=== PATIENT | female | born 1960 | race Caucasian/White ===

== ENCOUNTER 2023-08-02 07:29 | Outpatient (AMB) | payer OTHER, SELFPAY ==
[2023-08-02 07:37] VITALS: BP 136/74; PULSE 91; O2SAT 99; BMI 26.8
--- NOTE | 2023-08-02 07:37 | A.OFFPC_ITS ---
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 Pt's sister in January and patient is grieving. PFSH Family History Sister Mental health disorder Brother Mental health disorder Social History Housing: House Patient Tobacco Use Status: Never used Tobacco e-Cigarette/Vaping Use: Never Used service: No Current occupational status: unemployed Cognitive needs: No Hearing needs: No Vision needs: Yes Questionnaire PHQ-9 Over the last 2 weeks, how often have you been bothered by any of the following problems? 1. Little interest or pleasure in doing things: more than half the days 2. Feeling down, depressed, or hopeless: several days 3. Trouble falling or staying asleep, or sleeping too much: nearly every day 4. Feeling tired or having little energy: several days 5. Poor appetite or overeating: not at all 6. Feeling bad about yourself - or that you are a failure or have let yourself or your family down: not at all 7. Trouble concentrating on things, such as reading the newspaper or watching television: not at all 8. Moving or speaking so slowly that other people could have noticed. Or the opposite - being so fidgety or restless that you have been moving around a lot more than usual: not at all 9. Thoughts that you would be better off or of hurting yourself in some way: not at all Total score: 7 Depression Screening Interpretation: Negative Depression Screening Done: Yes Source: Developed by Drs. Jomar Haro, Maryanne Sosa, Steven Pelayo and colleagues, with an educational ramila from [employer]. Thrive Questionnaire Date Thrive assessed: 08/02/23 I am a: Patient What is your living situation today?: I have a steady place to live Within the past 12 months, did the food you bought not last and you didn't have the money to get more?: Never true Within the past 12 months, did you worry whether your food would run out before you got money to buy more?: Never true Do you have trouble paying for medicines?: No Do you have trouble getting transportation to medical appointments?: No Do you have trouble paying your heating and electricity bill?: No Do you have trouble taking care of your child, family member or friend?: No Do you have trouble with day-to-day activities such as bathing, preparing meals, shopping, managing finances, etc.?: No Are you currently unemployed and looking for a job?: No Are you interested in more education?: No THRIVE Score: 0 AUDIT C Alcohol Use Questionnaire (AUDIT-C) 1. How often do you have a drink containing alcohol?: Monthly or less 2. How many drinks containing alcohol do you have on a typical day when you are drinking?: 1 or 2 3. How often do you have six or more drinks on one occasion?: Never Total Score: 1 EASTON-7 AMB Questionnaire EASTON-7 Date EASTON - 7 assessed: 08/02/23 Feeling nervous, anxious, or on edge: 2 = More than half the days Not being able to stop or control worryin = Several days Worrying too much about different things: 2 = More than half the days Trouble relaxin = Nearly every day Being so restless that it is hard to sit still: 3 = Nearly every day Becoming easily annoyed or irritable: 2 = More than half the days Feeling afraid as if something awful might happen: 0 = Not at all Total EASTON-7 score (0-4 normal; 5-9 mild; 10-14 moderate; 15-21 severe): 13 Source: Developed by Drs. Jomar Haro, Maryanne Sosa, Steven Pelayo and colleagues, with an educational ramila from [employer]. Review of Systems Const All systems reviewed & are unremarkable except as noted in HPI and below Reports no additional complaints Eyes Reports no additional complaints ENT Reports no additional complaints Card Reports no additional complaints Resp Reports no additional complaints GI Reports no additional complaints Reports no additional complaints Physical exam (Primary Care) Vital Signs: Last Vital Signs Pulse 91 08/02/23 07:37 BP 136/74 08/02/23 07:37 Pulse Ox 99 08/02/23 07:37 Oxygen Delivery Method Room Air 08/02/23 07:37 BMI result Body Mass Index 26.8 Tobacco/Smoking Status: Tobacco use Status Tobacco use date assessed 08/02/23 08/02/23 07:41 Patient Tobacco Use Status Never used Tobacco 08/02/23 07:41 e-Cigarette/Vaping Use Never Used 08/02/23 07:41 PHQ-9: PHQ-9 Score PHQ-9: Total score 7 08/02/23 08:09 Depression Screening Interpretation: Negative Thrive Assessment: Date of Thrive Assessment Date Thrive assessed 08/02/23 08/02/23 07:45 Const General: no acute distress HENMT Head: Yes normal to inspection Ears: hearing grossly normal bilaterally Face and sinus: Yes normal facial exam Throat: Yes posterior oropharynx normal Eyes General: appearance normal, both eyes and all related structures Neck Neck: Yes no lymphadenopathy and Yes supple Resp Effort & Inspection: normal respiratory effort Auscultation: clear to auscultation bilaterally Cardio Rhythm: regular rhythm Heart sounds: S1 normal heart sound present and S2 normal heart sound present GI Inspection: Yes normal to inspection Palpation (GI): Soft to palpation Percussion: Yes normal to percussion Auscultation: normal bowel sounds Assessment and Plan Assessment & Plan (1) Annual physical exam: Code(s): Z00.00 - Encounter for general adult medical examination without abnormal findings Plan: Well-balanced diet regular physical activity discussed with the patient (2) Hyperlipidemia: Code(s): E78.5 - Hyperlipidemia, unspecified Plan: Continue Crestor check lipid profile (3) HTN (hypertension): Code(s): I10 - Essential (primary) hypertension Plan: Continue losartan (4) Hx of colonoscopy with polypectomy: Comment: Dr. Onofre, patient will have a repeat colonoscopy in 2023 Code(s): Z98.890 - Other specified postprocedural states; Z86.010 - Personal history of colonic polyps Orders: Orders Comprehensive [place]. Panel Fast Today E55.9 - Vitamin D deficiency, unspecified, M47.812 - Spondylosis without myelopathy or radiculopathy, cervical region, M48.061 - Spinal stenosis, lumbar region without neurogenic claudication, M85.80 - Other specified disorders of bone density and structure, unspecified site, N28.1 - Cyst of kidney, acquired, Z92.89 - Personal history of other medical treatment Vitamin B12 and Folate Today E55.9 - Vitamin D deficiency, unspecified, M47.812 - Spondylosis without myelopathy or radiculopathy, cervical region, M48.061 - Spinal stenosis, lumbar region without neurogenic claudication, M85.80 - Other specified disorders of bone density and structure, unspecified site, N28.1 - Cyst of kidney, acquired, Z92.89 - Personal history of other medical treatment Vitamin D 25-OH Total Today E55.9 - Vitamin D deficiency, unspecified, M47.812 - Spondylosis without myelopathy or radiculopathy, cervical region, M48.061 - Spinal stenosis, lumbar region without neurogenic claudication, M85.80 - Other specified disorders of bone density and structure, unspecified site, N28.1 - Cyst of kidney, acquired, Z92.89 - Personal history of other medical treatment UA w Microscopic Today E55.9 - Vitamin D deficiency, unspecified, M47.812 - Spondylosis without myelopathy or radiculopathy, cervical region, M48.061 - Spinal stenosis, lumbar region without neurogenic claudication, M85.80 - Other specified disorders of bone density and structure, unspecified site, N28.1 - Cyst of kidney, acquired, Z92.89 - Personal history of other medical treatment Complete Blood Count Auto Diff Today E55.9 - Vitamin D deficiency, unspecified, M47.812 - Spondylosis without myelopathy or radiculopathy, cervical region, M48.061 - Spinal stenosis, lumbar region without neurogenic claudication, M85.80 - Other specified disorders of bone density and structure, unspecified site, N28.1 - Cyst of kidney, acquired, Z92.89 - Personal history of other medical treatment Lipid Panel Today E55.9 - Vitamin D deficiency, unspecified, M47.812 - Spondylosis without myelopathy or radiculopathy, cervical region, M48.061 - Spinal stenosis, lumbar region without neurogenic claudication, M85.80 - Other specified disorders of bone density and structure, unspecified site, N28.1 - Cyst of kidney, acquired, Z92.89 - Personal history of other medical treatment TSH reflex Free T4 Today E55.9 - Vitamin D deficiency, unspecified, M47.812 - Spondylosis without myelopathy or radiculopathy, cervical region, M48.061 - Spin al stenosis, lumbar region without neurogenic claudication, M85.80 - Other specified disorders of bone density and structure, unspecified site, N28.1 - Cyst of kidney, acquired, Z92.89 - Personal history of other medical treatment Coding Level of Care Code New Pt Prev Care 40-64y(07448) Diagnoses Annual physical exam Z00.00 Hyperlipidemia E78.5 HTN (hypertension) I10 Hx of colonoscopy with polypectomy Z98.890; Z86.010
== END 2023-08-02 08:24 | disposition home or self-care (01) ==
PROVIDERS: PCP Internal Medicine; Visit Provider Internal Medicine
DX: Z00.00 Encounter for general adult medical examination without abnormal findings (principal); E78.5 Hyperlipidemia, unspecified; I10 Essential (primary) hypertension; Z98.890 Other specified postprocedural states; Z86.010 Personal history of colon polyps
CPT/HCPCS: 99386

== ENCOUNTER 2023-08-02 08:27 | Outpatient (REF) | payer OTHER, SELFPAY ==
[2023-08-02 10:24] LABS: MANUAL DIFF FLAG NO
[2023-08-02 10:29] LABS: Basophils Percent Auto 1.1 % (0-2); Eosinophils Absolute Auto 0.1 X10*3/uL (0.0-0.4); Eosinophils Percent Auto 1.7 % (0-4); Hematocrit 39.8 % (37.0-47.0); Hemoglobin 13.4 g/dl (12.0-16.0); Imm Gran Abs Auto 0.01 X10*3/uL (0.00-0.03); Imm Gran Pct Auto 0.3 % (0.0-0.4); Lymphocytes Absolute Auto 1.2 X10*3/uL (1.2-4.9); Mean Corpuscular HGB Conc 33.7 g/dl (31.0-35.0); Mean Corpuscular Hemoglobin 29.5 pg (27.0-33.0); Mean Corpuscular Volume 87.5 fL (80.0-98.0); Mean Platelet Volume 12.1 fL (9.4-12.3); Monocytes Absolute Auto 0.2 X10*3/uL (0.1-1.2); Monocytes Percent Auto 6.4 % (2-11); Neutrophils Absolute Auto 2.1 x10*3/uL (2.0-8.3); Neutrophils Percent Auto 58.5 % (45-73); Platelet Count 223 X10*3/uL (160-400); Red Blood Count 4.55 X10*6/uL (4.20-5.50); Red Cell Distribution Width 12.5 % (11.0-16.0); White Blood Count 3.6 X10*3/uL (4.8-10.8)
[2023-08-02 10:51] LABS: Appearance Urine Clear; Color Urine Yellow; Glucose Urine UA Negative (Negative); Leukocyte Esterase Urine Negative (Negative); Nitrite Urine Negative (Negative); UMIC TRIGGER UA YES; Urine Blood Negative (Negative); Urine Ketones Negative (Negative); Urine Protein 30 (1+) mg/dL (Neg-Trace)
[2023-08-02 10:53] LABS: Alanine Aminotransferase 19 U/L (0-31); Albumin Level 4.7 g/dL (3.5-5.0); Alkaline Phosphatase 65 U/L (39-117); Anion Gap 15 (12-20); Aspartate Amino Transferase 21 U/L (5-31); Bilirubin Total 0.4 mg/dL (0.0-1.0); Blood Urea Nitrogen 12 mg/dL (9-16); Carbon Dioxide 26 mmol/L (22-29); Chloride 106 mmol/L (96-108); Cholesterol 220 mg/dL (<200); Estimated Glomerular Filt Rate > 60; Glucose Fasting 101 mg/dL (60-99); HDL Cholesterol 87 mg/dL (>40); LDL Cholesterol Calculated 109 mg/dL (<100); Potassium 3.9 mmol/L (3.3-5.1); Sodium 143 mmol/L (135-145); Total Protein 7.7 g/dL (6.5-8.0); Triglycerides 124 mg/dL (<150)
[2023-08-02 10:54] LABS: Bacteria Urine None Seen (None Seen); RBC Urine 0-2 /HPF (0-2); Squamous Epithelial Cell Urine 0-2 /HPF (0-2); WBC Urine 0-5 /HPF (0-5)
[2023-08-02 11:20] LABS: Folate 13.7 ng/mL (> or = 4.0); Vitamin B12 649 pg/mL (200-900)
[2023-08-02 11:21] LABS: TSH reflex Free T4 1.59 uIU/mL (0.32-4.0); Vitamin D 25-OH Total 67.8 ng/mL (>30)
== END 2023-08-02 08:28 | disposition home or self-care (01) ==
LOC: HO.HMGCLDS 08:27
PROVIDERS: PCP Internal Medicine; Visit Provider Internal Medicine
DX: M47.812 Spondylosis without myelopathy or radiculopathy, cervical region (principal); M48.061 Spinal stenosis, lumbar region without neurogenic claudication; N28.1 Cyst of kidney, acquired; M85.80 Other specified disorders of bone density and structure, unspecified site; E55.9 Vitamin D deficiency, unspecified; Z92.89 Personal history of other medical treatment
CPT/HCPCS: 36415; 80053; 80061; 81001; 82306; 82607; 82746; 84443; 85025

== ENCOUNTER 2023-10-20 09:21 | Outpatient (AMB) | payer OTHER, SELFPAY ==
[2023-10-20 09:23] VITALS: PULSE 81; O2SAT 98; BMI 26.9
--- NOTE | 2023-10-20 09:23 | A.OFFPC_ITS ---
Vital Signs 10/20/23 09:23 Height 5 ft 4 in Weight 157 lb BMI 26.9 Pulse 81 Pulse Source Pulse Oximeter Pulse Oximetry (%) 98 Oxygen Delivery Method Room Air Intake Visit Reasons: EP 3M F/U Intake Note: Pt is here today for 3 months follow up visit. Allergies No Known Allergies Allergy (Verified 10/20/23 09:25) Medication List - Last Reconciled 10/20/23 by Therese Ortiz MD cyclobenzaprine 10 mg PO TID PRN losartan 100 mg PO DAILY multivitamin 1 tab PO DAILY rosuvastatin 5 mg PO DAILY Tobacco use date assessed: 10/20/23 Dental Screening Dental Screen Date: 08/02/23 HPI EP 3M F/U HPI Details Pt presents for f/u of HTN and hyperlipid, stable on meds. Pt c/o chronic specialist lauro neck pain and stiffness. Pt had PT before with good refief. PFS Medical History (Updated 10/20/23 @ 09:59 by Therese Ortiz MD) Ectopic Surgical History (Updated 10/20/23 @ 09:28 by Diana Ogden [facility]) Hx of tonsillectomy Family History Sister Mental health disorder Brother Mental health disorder Social History Housing: House Patient Tobacco Use Status: Never used Tobacco e-Cigarette/Vaping Use: Never Used service: No Current occupational status: unemployed Cognitive needs: No Hearing needs: No Vision needs: Yes Questionnaire Thrive Questionnaire Date Thrive assessed: 08/02/23 EASTON-7 AMB Questionnaire EASTON-7 Date EASTON - 7 assessed: 08/02/23 Source: Developed by Drs. Jomar Haro, Maryanne Sosa, Steven Pelayo and colleagues, with an educational ramila from [employer]. Review of Systems Const All systems reviewed & are unremarkable except as noted in HPI and below Reports no additional complaints Eyes Reports no additional complaints ENT Reports no additional complaints Card Reports no additional complaints Resp Reports no additional complaints GI Reports no additional complaints Reports no additional complaints Physical exam (Primary Care) Vital Signs: Last Vital Signs Pulse 81 10/20/23 09:23 Pulse Ox 98 10/20/23 09:23 Oxygen Delivery Method Room Air 10/20/23 09:23 BMI result Body Mass Index 26.9 Tobacco/Smoking Status: Tobacco use Status Tobacco use date assessed 10/20/23 10/20/23 09:27 Patient Tobacco Use Status Never used Tobacco 10/20/23 09:23 e-Cigarette/Vaping Use Never Used 10/20/23 09:23 Thrive Assessment: Date of Thrive Assessment Date Thrive assessed 08/02/23 10/20/23 09:23 Const General: no acute distress HENMT Head: Yes normal to inspection Throat: Yes posterior oropharynx normal Neck Neck: Yes supple Resp Effort & Inspection: normal respiratory effort Auscultation: clear to auscultation bilaterally Cardio Rhythm: regular rhythm Heart sounds: S1 normal heart sound present and S2 normal heart sound present GI Inspection: Yes normal to inspection Palpation (GI): Soft to palpation Percussion: Yes normal to percussion Auscultation: normal bowel sounds Back/Spine/Pelvis Other: Decreased range of motion and paraspinal tenderness and muscle spasm in the lower cervical region Assessment and Plan Assessment & Plan (1) Neck pain: Code(s): M54.2 - Cervicalgia Plan: Referred to physical therapy (2) HTN (hypertension): Code(s): I10 - Essential (primary) hypertension Plan: Change losartan to valsartan 160 mg follow-up in 2 months check comprehensive panel before (3) Hyperlipidemia: Code(s): E78.5 - Hyperlipidemia, unspecified Plan: Continue rosuvastatin Orders: Orders PT Evaluation and Treatment Today M54.2 - Cervicalgia Comprehensive [place]. Panel Fast 2 Months E78.5 - Hyperlipidemia, unspecified, I10 - Essential (primary) hypertension Medications: New valsartan 160 mg PO DAILY 90 tabs 0RF rosuvastatin 5 mg PO DAILY 90 tabs 3RF Coding Level of Care Code Est Pt Level 4 (27595) Diagnoses Neck pain M54.2 HTN (hypertension) I10 Hyperlipidemia E78.5
== END 2023-10-20 10:15 | disposition home or self-care (01) ==
PROVIDERS: PCP Internal Medicine; Visit Provider Internal Medicine
DX: M54.2 Cervicalgia (principal); I10 Essential (primary) hypertension; E78.5 Hyperlipidemia, unspecified
CPT/HCPCS: 99214

== ENCOUNTER 2023-11-30 09:00 | Outpatient (RCR) | payer OTHER, SELFPAY ==
--- NOTE | 2023-11-10 14:06 | MHC.PT.EP ---
[facility] [place] Office [place] Office [place] Office [address] Christopher Levy [address] [phone] F: [phone] F: [phone] F: [phone] F: [phone] Physical Therapy Plan of Care Date of Evaluation: 11/10/23 Date of Surgery: Diagnosis: This is a 63 yo female presenting to skilled PT with a script for cervicalgia. Assessment: This is a 63 yo female presenting to skilled PT with a script for cervicalgia. Patient reporting that she has had neck pain for a long time now. She had therapy for this in the past and it was helpful. Pain is located centralized at neck (hears a painful crack, achy), UT on the L (pulling), forearm/elbow (weakness), and all tips of the fingers (numb, minimal tingling). She gets weakness in the hand as well. Pain increases with rotation, tilting her head up, reaching up with the left, sleeping. Assessment reveals pain that ranges from up to a 7/10 at the worst. Patient demos decreased B shoulder and cervical ROM, strength of B shoulder's, TTP at GHJ joint line, UT and impaired posture with forward head and rounded shoulders. Based on functional limitations, impaired QOL and pain tolerance patient is a good candidate for skilled PT 2x/wk for 4wks. Frequency and Duration: The patient will be seen 2x/wk for 4wks Short Term Goals: (in 2 wks) I in HEP Improve cervical ROM by at least 25% Demo proper cervical positioning with progression of UB strengthening exercises without cues from PT Marketing Specialist Goals: (in 4 wks) Report 50% improvement in QOL Tolerate sleeping through the night without waking from pain Improve NDI by 10 points Improve pain to no more than 2/10 at the worst Treatment Plan: Modalities to reduce pain, spasms and effusion. Manual therapy to restore motion and function. Therapeutic exercise to improve strength and flexibility. Neuromuscular re-education for posture and balance. Therapeutic activities to return to functional activities of daily living. Electronically signed by: Lizbeth Bach PT Please sign and return to therapist. Thank you for your referral.
--- NOTE | 2023-11-30 09:45 | MHC.PT.EP ---
[facility] [place] Office [place] Office [place] Office [address] Christopher Levy [address] [phone] F: [phone] F: [phone] F: [phone] F: [phone] Physical Therapy Plan of Care Date of Evaluation: 11/10/23 Date of Surgery: Diagnosis: This is a 63 yo female presenting to skilled PT with a script for cervicalgia. Assessment: This is a 63 yo female presenting to skilled PT with a script for cervicalgia. Patient reporting that she has had neck pain for a long time now. She had therapy for this in the past and it was helpful. Pain is located centralized at neck (hears a painful crack, achy), UT on the L (pulling), forearm/elbow (weakness), and all tips of the fingers (numb, minimal tingling). She gets weakness in the hand as well. Pain increases with rotation, tilting her head up, reaching up with the left, sleeping. Assessment reveals pain that ranges from up to a 7/10 at the worst. Patient demos decreased B shoulder and cervical ROM, strength of B shoulder's, TTP at GHJ joint line, UT and impaired posture with forward head and rounded shoulders. Based on functional limitations, impaired QOL and pain tolerance patient is a good candidate for skilled PT 2x/wk for 4wks. 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 Manual therapy to restore motion and function. Therapeutic exercise to improve strength and flexibility. Neuromuscular re-education for posture and balance. Therapeutic activities to return to functional activities of daily living. Electronically signed by: Lizbeth Bach PT Please sign and return to therapist. Thank you for your referral.
--- NOTE | 2023-12-29 13:00 | MHC.PT.DC ---
[facility] [place] Office [place] Office [place] Office [address] Christopher Levy [address] [phone] F: [phone] F: [phone] F: [phone] F: [phone] Physical Therapy Discharge Report Diagnosis: This is a 63 yo female presenting to skilled PT with a script for cervicalgia. Date of Surgery: Date of Evaluation: 11/10/23 Date of Discharge: 12/29/23 Treatments to Date: 6 Cancellations to Date: 0 No Shows to Date: 0 Discharge Status: Patient Elected to Stop Recommend MD Follow-up Discharge Summary: 11/29: Patient with continued symptoms and if not worsening symptoms. We decided to put her on a PT hold for now due to soreness with and after PT as well as resolving pains. We have trialed manual therapy, mechanical traction, stretching, strengthening and postural education, tens and KT. When I performed cervical and shoulder ROM she is about the same if not a little worse. She also demos 4/5 shoulder MMT. No improvements have been noted. Due to worsening symptoms, I am referring back to MD. She may need an updated MRI and referral to media relations specialist at this time. Patient to be placed on PT hold at this time. Electronically signed by: Lizbeth Bach PT Please sign and return to therapist. Thank you for your referral.
== END 2023-12-29 13:00 | disposition home or self-care (01) ==
LOC: HO.PTCHIC 09:00
PROVIDERS: PCP Internal Medicine; Visit Provider Internal Medicine
DX: M54.2 Cervicalgia (principal)
CPT/HCPCS: 97110; 97140; 97162

== ENCOUNTER 2023-12-17 07:20 | Outpatient (REF) | payer OTHER, SELFPAY ==
[2023-12-17 10:54] LABS: Alanine Aminotransferase 14 U/L (0-31); Albumin Level 4.4 g/dL (3.5-5.0); Alkaline Phosphatase 65 U/L (39-117); Anion Gap 11 (12-20); Aspartate Amino Transferase 19 U/L (5-31); Bilirubin Total 0.3 mg/dL (0.0-1.0); Blood Urea Nitrogen 18 mg/dL (9-16); Calcium 9.5 mg/dL (8.4-10.2); Carbon Dioxide 26 mmol/L (22-29); Chloride 109 mmol/L (96-108); Estimated Glomerular Filt Rate 59; Glucose Fasting 99 mg/dL (60-99); Potassium 4.1 mmol/L (3.3-5.1); Sodium 142 mmol/L (135-145)
== END 2023-12-17 07:21 | disposition home or self-care (01) ==
LOC: HO.HMGCLDS 07:20
PROVIDERS: PCP Internal Medicine; Visit Provider Internal Medicine
DX: E78.5 Hyperlipidemia, unspecified (principal); I10 Essential (primary) hypertension
CPT/HCPCS: 36415; 80053

== ENCOUNTER 2023-12-21 10:36 | Outpatient (AMB) | payer OTHER, SELFPAY ==
--- NOTE | 2023-12-21 10:39 | MHC.PC.OV ---
Vital Signs 12/21/23 10:40 Height 5 ft 4 in Weight 158 lb BMI 27.1 BP 138/85 Blood Pressure Location Rt brachial Position Sitting Pulse 96 Pulse Source Pulse Oximeter Pulse Oximetry (%) 98 Oxygen Delivery Method Room Air Intake Visit Reasons: 2 month f/u Intake Note: Pt is here today for 2 months follow up visit on BP check new med. Allergies No Known Allergies Allergy (Verified 12/21/23 10:42) Medication List - Last Reconciled 12/21/23 by Therese Ortiz MD cyclobenzaprine 10 mg PO TID PRN multivitamin 1 tab PO DAILY rosuvastatin 5 mg PO DAILY valsartan 160 mg PO DAILY Tobacco use date assessed: 10/20/23 Dental Screening Dental Screen Date: 08/02/23 HPI 2 month f/u HPI Details Pt c/o persistent neck stiffness and locking when turning her neck to the side. Patient tried physical therapy which made the pain worse. She complains of intermittent tingling sensation in the left hand when holding a phone for too long. 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 Pt had cervical MR in 2021 c/o mild spinal stenosis at C6-C7 level. [facility] Medical History (Updated 12/21/23 @ 11:27 by Therese Ortiz MD) Ectopic Surgical History Hx of tonsillectomy Family History Sister Mental health disorder Brother Mental health disorder Social History Housing: House Patient Tobacco Use Status: Never used Tobacco e-Cigarette/Vaping Use: Never Used service: No Current occupational status: unemployed Cognitive needs: No Hearing needs: No Vision needs: Yes Questionnaire Thrive Questionnaire Date Thrive assessed: 12/18/23 I am a: Patient What is your living situation today?: I have a steady place to live Within the past 12 months, did the food you bought not last and you didn't have the money to get more?: Never true Within the past 12 months, did you worry whether your food would run out before you got money to buy more?: Never true Do you have trouble paying for medicines?: No Do you have trouble getting transportation to medical appointments?: No Do you have trouble paying your heating and electricity bill?: No Do you have trouble taking care of your child, family member or friend?: No Do you have trouble with day-to-day activities such as bathing, preparing meals, shopping, managing finances, etc.?: No Are you currently unemployed and looking for a job?: No Are you interested in more education?: No Please select the resources that you would like help with: None Currently or been in a relationship where the following occur: No concerns reported THRIVE Score: 0 AUDIT C Alcohol Use Questionnaire (AUDIT-C) 1. How often do you have a drink containing alcohol?: Monthly or less 2. How many drinks containing alcohol do you have on a typical day when you are drinking?: 1 or 2 3. How often do you have six or more drinks on one occasion?: Never Total Score: 1 EASTON-7 AMB Questionnaire EASTON-7 Date EASTON - 7 assessed: 12/21/23 Feeling nervous, anxious, or on edge: 2 = More than half the days Not being able to stop or control worryin = More than half the days Worrying too much about different things: 2 = More than half the days Trouble relaxin = More than half the days Being so restless that it is hard to sit still: 0 = Not at all Becoming easily annoyed or irritable: 0 = Not at all Feeling afraid as if something awful might happen: 0 = Not at all Total EASTON-7 score (0-4 normal; 5-9 mild; 10-14 moderate; 15-21 severe): 8 Source: Developed by Drs. Jomar Haro, Maryanne Sosa, Steven Pelayo and colleagues, with an educational ramila from [employer]. EASTON-7 Assessment Billing EASTON-7 Assessment Tool: EASTON-7 Assessment 64148 Review of Systems Const All systems reviewed & are unremarkable except as noted in HPI and below ENT Reports no additional complaints Card Reports no additional complaints Resp Reports no additional complaints GI Reports no additional complaints Physical exam (Primary Care) Vital Signs: Last Vital Signs Pulse 96 12/21/23 10:40 Pulse Ox 98 12/21/23 10:40 Oxygen Delivery Method Room Air 12/21/23 10:40 BMI result Body Mass Index 27.1 Tobacco/Smoking Status: Tobacco use Status Tobacco use date assessed 10/20/23 12/21/23 10:40 Patient Tobacco Use Status Never used Tobacco 12/21/23 10:40 e-Cigarette/Vaping Use Never Used 12/21/23 10:40 Thrive Assessment: Date of Thrive Assessment Date Thrive assessed 12/18/23 12/21/23 10:40 Currently or been in a relationship where the following occur: No concerns reported Const General: no acute distress Eyes General: appearance normal, both eyes and all related structures Neck Other: Decreased range of motion paraspinal tenderness in the lower cervical region, Neck: Yes supple Resp Effort & Inspection: normal respiratory effort Auscultation: clear to auscultation bilaterally Cardio Rhythm: regular rhythm Heart sounds: S1 normal heart sound present and S2 normal heart sound present GI Inspection: Yes normal to inspection Palpation (GI): Soft to palpation Percussion: Yes normal to percussion Neuro Cranial nerves: Yes CN's II-XII intact bilaterally Gait exam (Neuro): Normal gait present Motor exam (neuro): 5/5 motor strength present throughout Extrem General: Yes no clubbing, cyanosis or edema Assessment and Plan Assessment & Plan (1) Numbness of left hand: Code(s): R20.0 - Anesthesia of skin Plan: Obtain EMG to evaluate for carpal tunnel (2) HTN (hypertension): Code(s): I10 - Essential (primary) hypertension Plan: Increase valsartan to 320 mg follow-up in 2 months (3) Hyperlipidemia: Code(s): E78.5 - Hyperlipidemia, unspecified Plan: Continue statin (4) Neck pain: Comment: MR [facility] spine 2021 mild spinal stenosis C6-7, osteophytes Code(s): M54.2 - Cervicalgia Plan: Continue home exercises and stretching including yoga was recommend Orders: Orders NE electromyogram (EMG) Today R20.0 - Anesthesia of skin Lipid Panel 2 Months E78.5 - Hyperlipidemia, unspecified, I10 - Essential (primary) hypertension Comprehensive [place]. Panel Fast 2 Months E78.5 - Hyperlipidemia, unspecified, I10 - Essential (primary) hypertension Medications: New valsartan 320 mg PO DAILY 90 tabs 0RF Changed From valsartan 160 mg PO DAILY 90 tabs 0RF To valsartan 160 mg PO BID 180 tabs 0RF Coding Level of Care Code Est Pt Level 4 (47791) Diagnoses Numbness of left hand R20.0 HTN (hypertension) I10 Hyperlipidemia E78.5 Neck pain M54.2 Additional Codes EASTON-7 Assessment Billing - EASTON-7 Assessment Tool: EASTON-7 Assessment 00825 ([id number])
[2023-12-21 10:40] VITALS: BP 138/85; PULSE 96; O2SAT 98; BMI 27.1
== END 2023-12-21 11:27 | disposition home or self-care (01) ==
PROVIDERS: PCP Internal Medicine; Visit Provider Internal Medicine
DX: R20.0 Anesthesia of skin (principal); I10 Essential (primary) hypertension; E78.5 Hyperlipidemia, unspecified; M54.2 Cervicalgia
CPT/HCPCS: 99214

== ENCOUNTER 2024-01-04 08:27 | Outpatient (REF) | payer OTHER, SELFPAY ==
--- NOTE | 2024-01-04 08:33 | EMG_ITS ---
FINDINGS: Left median and ulnar motor and sensory studies were performed. Left radial sensory study was performed. Left median and lateral antecubital brachial sensory studies were performed and paraspinal muscles were tested with a needle. IMPRESSION: Mild left median neuropathy across carpal tunnel. MD AMINATA Gonzalez/PRAKASH / [id number]
== END 2024-01-04 08:28 | disposition home or self-care (01) ==
LOC: HO.NEURO 08:27
PROVIDERS: PCP Internal Medicine; Visit Provider Internal Medicine
DX: R20.0 Anesthesia of skin (principal)
CPT/HCPCS: 95886; 95910

== ENCOUNTER 2024-02-18 08:29 | Outpatient (REF) | payer OTHER, SELFPAY ==
[2024-02-18 11:46] LABS: Alanine Aminotransferase 15 U/L (0-31); Albumin Level 4.4 g/dL (3.5-5.0); Alkaline Phosphatase 60 U/L (39-117); Anion Gap 11 (12-20); Aspartate Amino Transferase 23 U/L (5-31); Bilirubin Total 0.3 mg/dL (0.0-1.0); Blood Urea Nitrogen 15 mg/dL (9-16); Calcium 9.7 mg/dL (8.4-10.2); Carbon Dioxide 27 mmol/L (22-29); Chloride 109 mmol/L (96-108); Cholesterol 186 mg/dL (<200); Estimated Glomerular Filt Rate > 60; Glucose Fasting 98 mg/dL (60-99); HDL Cholesterol 74 mg/dL (>40); LDL Cholesterol Calculated 93 mg/dL (<100); Potassium 4.5 mmol/L (3.3-5.1); Sodium 142 mmol/L (135-145); Total Protein 7.1 g/dL (6.5-8.0); Triglycerides 99 mg/dL (<150)
== END 2024-02-18 08:30 | disposition home or self-care (01) ==
LOC: HO.HMGCLDS 08:29
PROVIDERS: PCP Internal Medicine; Visit Provider Internal Medicine
DX: E78.5 Hyperlipidemia, unspecified (principal); I10 Essential (primary) hypertension
CPT/HCPCS: 36415; 80053; 80061

== ENCOUNTER 2024-02-22 09:26 | Outpatient (AMB) | payer OTHER, SELFPAY ==
[2024-02-22 09:42] VITALS: BP 125/80; PULSE 86; O2SAT 99; BMI 26.4
--- NOTE | 2024-02-22 09:42 | A.OFFPC_ITS ---
Vital Signs 02/22/24 09:42 Height 5 ft 4 in Weight 154 lb BMI 26.4 BP 125/80 Blood Pressure Location Rt brachial Position Sitting Pulse 86 Pulse Source Pulse Oximeter Pulse Oximetry (%) 99 Oxygen Delivery Method Room Air Intake Visit Reasons: 2 month follow up Intake Note: Pt is here today for 2 months follow up visit. Allergies No Known Allergies Allergy (Verified 02/22/24 09:56) Medication List - Last Reconciled 02/22/24 by Therese Ortiz MD cyclobenzaprine 10 mg PO TID PRN multivitamin 1 tab PO DAILY rosuvastatin 5 mg PO DAILY valsartan 320 mg PO DAILY Tobacco use date assessed: 02/22/24 Dental Screening Dental Screen Date: 08/02/23 HPI 2 month follow up HPI Details Patient presents for the follow-up on hypertension and hyperlipidemia, controlled on current medications. She complains of chronic neck and lower back pain and spasms on and off. She reports physical therapy made her symptoms worse and she used to be treated by pain management with injections without significant relief. Patient has been walking 1 mi a day [facility] Medical History Ectopic Surgical History Hx of tonsillectomy Family History Sister Mental health disorder Brother Mental health disorder Social History Housing: House Patient Tobacco Use Status: Never used Tobacco e-Cigarette/Vaping Use: Never Used service: No Current occupational status: unemployed Cognitive needs: No Hearing needs: No Vision needs: Yes Questionnaire Thrive Questionnaire Date Thrive assessed: 12/18/23 I am a: Patient What is your living situation today?: I have a steady place to live Within the past 12 months, did the food you bought not last and you didn't have the money to get more?: Never true Within the past 12 months, did you worry whether your food would run out before you got money to buy more?: Never true Do you have trouble paying for medicines?: No Do you have trouble getting transportation to medical appointments?: No Do you have trouble paying your heating and electricity bill?: No Do you have trouble taking care of your child, family member or friend?: No Do you have trouble with day-to-day activities such as bathing, preparing meals, shopping, managing finances, etc.?: No Are you currently unemployed and looking for a job?: No Are you interested in more education?: No Please select the resources that you would like help with: None Currently or been in a relationship where the following occur: No concerns reported THRIVE Score: 0 EASTON-7 AMB Questionnaire EASTON-7 Date EASTON - 7 assessed: 12/21/23 Source: Developed by Drs. Jomar Haro, Maryanne Sosa, Steven Pelayo and colleagues, with an educational ramila from [employer]. Review of Systems Const All systems reviewed & are unremarkable except as noted in HPI and below Eyes Reports no additional complaints ENT Reports no additional complaints Card Reports no additional complaints Resp Reports no additional complaints GI Reports no additional complaints Reports no additional complaints Physical exam (Primary Care) Vital Signs: Last Vital Signs Pulse 86 02/22/24 09:42 Pulse Ox 99 02/22/24 09:42 Oxygen Delivery Method Room Air 02/22/24 09:42 BMI result Body Mass Index 26.4 Tobacco/Smoking Status: Tobacco use Status Tobacco use date assessed 02/22/24 02/22/24 09:58 Patient Tobacco Use Status Never used Tobacco 02/22/24 09:58 e-Cigarette/Vaping Use Never Used 02/22/24 09:42 Thrive Assessment: Date of Thrive Assessment Date Thrive assessed 12/18/23 02/22/24 09:42 Currently or been in a relationship where the following occur: No concerns reported Const General: no acute distress HENMT Throat: Yes posterior oropharynx normal Eyes General: appearance normal, both eyes and all related structures Neck Neck: Yes supple Resp Effort & Inspection: normal respiratory effort Auscultation: clear to auscultation bilaterally Cardio Rhythm: regular rhythm Heart sounds: S1 normal heart sound present and S2 normal heart sound present Coding Level of Care Code Est Pt Level 4 (72352) Diagnoses Hx of colonoscopy with polypectomy Z98.890; Z86.010 Neck pain M54.2 Hyperlipidemia E78.5 HTN (hypertension) I10 Vitamin D deficiency E55.9 Assessment & Plan Assessment & Plan (1) Hx of colonoscopy with polypectomy: Comment: Dr. Onofre, negative 01/2024 repeat in 7 yrs Code(s): Z98.890 - Other specified postprocedural states; Z86.010 - Personal history of colon polyps Category: Surgical Plan: f/u GI (2) Neck pain: Comment: MR [place] spine 2021 mild spinal stenosis C6-7, osteophytes Code(s): M54.2 - Cervicalgia Category: Medical Plan: Continue regular neck exercises patient will try yoga and cyclobenzaprine as needed (3) Hyperlipidemia: Code(s): E78.5 - Hyperlipidemia, unspecified Category: Medical Plan: Continue Crestor (4) HTN (hypertension): Code(s): I10 - Essential (primary) hypertension Category: Medical Plan: Continue valsartan, follow-up in 4 months (5) Vitamin D deficiency: Code(s): E55.9 - Vitamin D deficiency, unspecified Category: Medical Plan: Continue vitamin-D supplement Orders: Orders Lipid Panel 4 Months E55.9 - Vitamin D deficiency, unspecified, E78.5 - Hyperlipidemia, unspecified, I10 - Essential (primary) hypertension, M54.2 - Cervicalgia Complete Blood Count Auto Diff 4 Months E55.9 - Vitamin D deficiency, unspecified, E78.5 - Hyperlipidemia, unspecified, I10 - Essential (primary) hypertension, M54.2 - Cervicalgia Erythrocyte Sedimentation Rate 4 Months E55.9 - Vitamin D deficiency, unspecified, E78.5 - Hyperlipidemia, unspecified, I10 - Essential (primary) hypertension, M54.2 - Cervicalgia Comprehensive [place]. Panel Fast 4 Months E55.9 - Vitamin D deficiency, unspecified, E78.5 - Hyperlipidemia, unspecified, I10 - Essential (primary) hypertension, M54.2 - Cervicalgia Vitamin D 25-OH Total 4 Months E55.9 - Vitamin D deficiency, unspecified, E78.5 - Hyperlipidemia, unspecified, I10 - Essential (primary) hypertension, M54.2 - Cervicalgia Medications: New cyclobenzaprine 10 mg PO TID PRN 60 tabs 2RF muscle spasm Refilled valsartan 320 mg PO DAILY 90 tabs 3RF
== END 2024-02-22 10:33 | disposition home or self-care (01) ==
PROVIDERS: PCP Internal Medicine; Visit Provider Internal Medicine
DX: Z98.890 Other specified postprocedural states (principal); Z86.0100 Personal history of colon polyps, unspecified; M54.2 Cervicalgia; E78.5 Hyperlipidemia, unspecified; I10 Essential (primary) hypertension; E55.9 Vitamin D deficiency, unspecified

== ENCOUNTER → 2024-02-22 09:26 | Outpatient (BNVA) | payer OTHER, SELFPAY | PROVIDERS: PCP Internal Medicine; Visit Provider Internal Medicine | DX: M54.2 Cervicalgia (principal); E78.5 Hyperlipidemia, unspecified; I10 Essential (primary) hypertension; E55.9 Vitamin D deficiency, unspecified; Z98.890 Other specified postprocedural states | CPT/HCPCS: 99212 ==

== ENCOUNTER 2024-06-22 08:57 | Outpatient (AMB) | payer OTHER, SELFPAY ==
[2024-06-22 09:21] VITALS: BP 122/70; PULSE 94; RESP 18; TEMP 37; O2SAT 96; BMI 26.6
--- NOTE | 2024-06-22 09:21 | A.OFFPC_ITS ---
Vital Signs 06/22/24 09:21 Height 5 ft 4 in Weight 155 lb BMI 26.6 BP 122/70 Blood Pressure Location Lt brachial Position Sitting Respiration 18 Pulse 94 Pulse Source Pulse Oximeter Temp 98.6 F Temp Source Oral Pulse Oximetry (%) 96 Oxygen Delivery Method Room Air Intake Visit Reasons: 4 months follow up Intake Note: Pt is here today for 4 months follow up visit. Allergies No Known Allergies Allergy (Verified 06/22/24 09:27) Medication List - Last Reconciled 06/22/24 by Therese Ortiz MD cyclobenzaprine 10 mg PO TID PRN multivitamin 1 tab PO DAILY rosuvastatin 5 mg PO DAILY valsartan 320 mg PO DAILY Tobacco use date assessed: 06/22/24 Dental Screening Dental Screen Date: 06/22/24 Did you have a dental visit in the last 12 months?: Yes Did you have a dental problem in the last 6 months where you did not have access to dental care?: No Was dental information given to patient?: Patient has dentist HPI 4 months follow up HPI Details PATIENT PRESENTS FOR THE FOLLOW-UP ON HYPERTENSION AND HYPERLIPIDEMIA, STABLE ON CURRENT MEDICATIONS. SHE COMPLAINS OF INSOMNIA AND CHRONIC LOWER BACK PAIN ON AND OFF WAKING PATIENT UP AT NIGHT. Patient has not been doing regular lower back exercises or walking. She denies weakness or numbness in extremities, change in bowel bladder function PFSH Medical History Ectopic Surgical History Hx of tonsillectomy Family History Sister Mental health disorder Brother Mental health disorder Social History Housing: House Patient Tobacco Use Status: Never used Tobacco e-Cigarette/Vaping Use: Never Used service: No Current occupational status: unemployed Cognitive needs: No Hearing needs: No Vision needs: Yes Questionnaire PHQ-9 Over the last 2 weeks, how often have you been bothered by any of the following problems? 1. Little interest or pleasure in doing things: more than half the days 2. Feeling down, depressed, or hopeless: several days 3. Trouble falling or staying asleep, or sleeping too much: nearly every day 4. Feeling tired or having little energy: several days 5. Poor appetite or overeating: not at all 6. Feeling bad about yourself - or that you are a failure or have let yourself or your family down: not at all 7. Trouble concentrating on things, such as reading the newspaper or watching television: not at all 8. Moving or speaking so slowly that other people could have noticed. Or the opposite - being so fidgety or restless that you have been moving around a lot more than usual: not at all 9. Thoughts that you would be better off or of hurting yourself in some way: not at all Total score: 7 Depression Screening Interpretation: Negative Depression Screening Done: Yes 74870 - PHQ-9 Billing: Yes Source: Developed by Drs. Jomar Haro, Maryanne Sosa, Steven Pelayo and colleagues, with an educational ramila from [employer]. Thrive Questionnaire Date Thrive assessed: 06/22/24 I am a: Patient What is your living situation today?: I have a steady place to live Within the past 12 months, did the food you bought not last and you didn't have the money to get more?: Never true Within the past 12 months, did you worry whether your food would run out before you got money to buy more?: Never true Do you have trouble paying for medicines?: No Do you have trouble getting transportation to medical appointments?: No Do you have trouble paying your heating and electricity bill?: No Do you have trouble taking care of your child, family member or friend?: No Do you have trouble with day-to-day activities such as bathing, preparing meals, shopping, managing finances, etc.?: No Are you currently unemployed and looking for a job?: No Are you interested in more education?: No Please select the resources that you would like help with: None Currently or been in a relationship where the following occur: No concerns reported THRIVE Score: 0 AUDIT C Alcohol Use Questionnaire (AUDIT-C) 1. How often do you have a drink containing alcohol?: Monthly or less 2. How many drinks containing alcohol do you have on a typical day when you are drinking?: 1 or 2 3. How often do you have six or more drinks on one occasion?: Never Total Score: 1 EASTON-7 AMB Questionnaire EASTON-7 Date EASTON - 7 assessed: 06/22/24 Feeling nervous, anxious, or on edge: 0 = Not at all Not being able to stop or control worryin = Not at all Worrying too much about different things: 0 = Not at all Trouble relaxin = Not at all Being so restless that it is hard to sit still: 0 = Not at all Becoming easily annoyed or irritable: 0 = Not at all Feeling afraid as if something awful might happen: 0 = Not at all Total EASTON-7 score (0-4 normal; 5-9 mild; 10-14 moderate; 15-21 severe): 0 Source: Developed by Drs. Joamr Haro, Maryanne Sosa, Steven Pelayo and colleagues, with an educational ramila from [employer]. EASTON-7 Assessment Billing EASTON-7 Assessment Tool: EASTON-7 Assessment 34080 Review of Systems Const All systems reviewed & are unremarkable except as noted in HPI and below Eyes Reports no additional complaints ENT Reports no additional complaints Card Reports no additional complaints Resp Reports no additional complaints GI Reports no additional complaints Reports no additional complaints Physical exam (Primary Care) Vital Signs: Last Vital Signs Temp 98.6 F 06/22/24 09:21 Pulse 94 06/22/24 09:21 Resp 18 06/22/24 09:21 BP 122/70 06/22/24 09:21 Pulse Ox 96 06/22/24 09:21 Oxygen Delivery Method Room Air 06/22/24 09:21 BMI result Body Mass Index 26.6 Tobacco/Smoking Status: Tobacco use Status Tobacco use date assessed 06/22/24 06/22/24 09:31 Patient Tobacco Use Status Never used Tobacco 06/22/24 09:22 e-Cigarette/Vaping Use Never Used 06/22/24 09:22 PHQ-9: PHQ-9 Score PHQ-9: Total score 7 06/22/24 09:31 Depression Screening Interpretation: Negative Thrive Assessment: Date of Thrive Assessment Date Thrive assessed 06/22/24 06/22/24 09:31 Currently or been in a relationship where the following occur: No concerns reported Const General: no acute distress HENMT Head: Yes normal to inspection Ears: hearing grossly normal bilaterally Mouth: Normal oral and palatal mucosa present Eyes General: appearance normal, both eyes and all related structures Neck Neck: Yes no lymphadenopathy and Yes supple Resp Effort & Inspection: normal respiratory effort Auscultation: clear to auscultation bilaterally Cardio Rhythm: regular rhythm Heart sounds: S1 normal heart sound present and S2 normal heart sound present GI Inspection: Yes normal to inspection Palpation (GI): Soft to palpation Percussion: Yes normal to percussion Auscultation: normal bowel sounds Coding Level of Care Code Est Pt Level 4 (97371) Diagnoses Hyperlipidemia E78.5 HTN (hypertension) I10 Vitamin D deficiency E55.9 Chronic lower back pain M54.50; G89.29 Additional Codes EASTON-7 Assessment Billing - EASTON-7 Assessment Tool: EASTON-7 Assessment 06751 ([id number]) PHQ-9 - 13705 - PHQ-9 Billing: Yes ([id number]) Assessment & Plan Assessment & Plan (1) Hyperlipidemia: Code(s): E78.5 - Hyperlipidemia, unspecified Category: Medical Plan: cont Crestor (2) HTN (hypertension): Code(s): I10 - Essential (primary) hypertension Category: Medical Plan: cont valsartan (3) Vitamin D deficiency: Code(s): E55.9 - Vitamin D deficiency, unspecified Category: Medical Plan: Continue vitamin-D supplement return for follow-up in 4 months with a fasting labs before (4) Chronic lower back pain: Code(s): M54.50 - Low back pain, unspecified; G89.29 - Other chronic pain Category: Medical Plan: She was advised to restart regular lower back exercises she declined physical therapy. Orders: Orders Complete Blood Count Auto Diff 4 Months E55.9 - Vitamin D deficiency, unspecified, E78.5 - Hyperlipidemia, unspecified, I10 - Essential (primary) hypertension Lipid Panel 4 Months E55.9 - Vitamin D deficiency, unspecified, E78.5 - Hyperlipidemia, unspecified, I10 - Essential (primary) hypertension Comprehensive [place]. Panel Fast 4 Months E55.9 - Vitamin D deficiency, unspecified, E78.5 - Hyperlipidemia, unspecified, I10 - Essential (primary) hypertension TSH reflex Free T4 4 Months E55.9 - Vitamin D deficiency, unspecified, E78.5 - Hyperlipidemia, unspecified, I10 - Essential (primary) hypertension Vitamin D 25-OH Total 4 Months E55.9 - Vitamin D deficiency, unspecified, E78.5 - Hyperlipidemia, unspecified, I10 - Essential (primary) hypertension Medications: New ciclopirox 8% 1 appl topical BEDTIME 4 weeks 6.6 mL 1RF
--- OUTSIDE RECORDS SUMMARY | 2024-06-22 10:04 | XMS_ITS | Clinical Summary ---
Author Organization [facility] Address [address] [place] [address] Care Team Providers Care Tetryl Screen Operator Name Role Phone David Kaiser MD Primary Care Provider [phone] Allergies No known active allergies Medications Medication Sig Dispensed Refills Start Date End Date Status losartan (COZAAR) tablet 50 mg 0 05/10/2020 Active rosuvastatin (CRESTOR) tablet 5 mg Take 5 mg by mouth daily. 0 05/15/2020 Active Family History Medical History Relation Name Comments Hypertension Father Cancer Mother Diabetes Mother Hypertension Mother Cancer Sister Diabetes Sister Relation Name Status Comments Father Mother Sister Social History Tobacco Use Types Packs/Day Years Used Date Smoking Tobacco: Never Assessed Sex and Gender Information Value Date Recorded Sex Assigned at Not on file Gender Identity Not on file Sexual Orientation Not on file Job Start Date Occupation Industry Not on file Not on file Not on file Last Filed Vital Signs Vital Sign Reading Time Taken Comments Blood Pressure - - Pulse - - Temperature - - Respiratory Rate - - Oxygen Saturation - - Inhaled Oxygen Concentration - - Weight 70.3 kg (155 lb) 06/11/2020 11:26 AM EST Height 162.6 cm (5' 4 ) 06/11/2020 11:26 AM EST Body Mass Index 26.61 06/11/2020 11:26 AM EST Plan of Treatment Health Maintenance Due Date Last Done Comments Hepatitis C Screening 1960 COVID-19 Vaccine (#1) 03/30/1961 Depression Screening 1972 BMI Counseling 1978 Preventative Health Evaluation 1978 DTap / Tdap / Td (1 - Tdap) 09/29/1979 Cervical Cancer Screening (P ap Smear) 1981 Colon Cancer Screening (Colonoscopy) 2005 Breast Cancer Screening (Mammogram) 2010 Shingrix-Zoster Vaccine (1 of 2) 2010 Influenza Vaccine (#1) 2023 RSV Adult > 60+ Yrs or Pregn ant (1 - 1-dose 75+ series) 09/29/2035 Hepatitis B Vaccines Aged Out No long er eligible based on patient's age to complete this topic Pneumococcal Vaccine Aged Out No long er eligible based on patient's age to complete this topic RSV Ped < 20 months Aged Out No longe r eligible based on patient's age to complete this topic Care Teams Tetryl Screen Operator Relationship Specialty Start Date End Date David Kaiser MD [address] [place] [id number] PCP - General Internal Medicine 05/17/20
--- OUTSIDE RECORDS SUMMARY | 2024-06-22 10:04 | XMS_ITS | Clinical Summary ---
Author [place] [facility] [place] [address] [place] [address] Care Team Providers Care Electroencephalographic Technician Name Role Phone David Kaiser MD Primary Care Provider [phone] Surgical History Surgery Date Site/Laterality Comments TONSILLECTOMY PROCEDURE: HISTORICAL TONSILLECTOMY TUBAL LIGATION PROCEDURE: HISTORICAL TUBAL LIGATION; COMMENT: And patient had ectopic Medical History Medical History Date Comments Mixed hyperlipidemia DX:Mixed hy perlipidemia Essential (primary) hypertension DX:Essential (primary) hypertension Social History Tobacco Use Types Packs/Day Years Used Date Smoking Tobacco: Never Smokeless Tobacco: Never Comments Unknown Sex and Gender Information Value Date Recorded Sex Assigned at Not on file Legal Sex Female 8:50 PM EST Gender Identity Not on file Sexual Orientation Not on file Obstetrics History Last Filed Vital Signs Vital Sign Reading Time Taken Comments Blood Pressure - - Pulse - - Temperature - - Respiratory Rate - - Oxygen Saturation - - Inhaled Oxygen Concentration - - Weight 68 kg (150 lb) 06/26/2022 9:36 AM EDT Height 160 cm (5' 3 ) 06/26/2022 9:36 AM EDT Body Mass Index 26.57 06/26/2022 9:36 AM EDT Plan of Treatment Health Maintenance Due Date Last Done Comments DTaP,Tdap,and Td Vaccines (1 - Tdap) 09/29/1979 Cervical Cancer Screening: Pap Smear 1981 Pneumococcal Vaccine: 50+ Years (1 of 1 - PCV) 2010 Zoster Vaccines (1 of 2) 2010 Cholesterol Screening (Lipid Panel) 05/12/2019 Colorectal Cancer Screening: Colonoscopy 05/12/2019 Depression Screening 05/12/2019 HIV Screening 05/12/2019 Hepatitis C Screening 05/12/2019 Social Influencers of Health Screening 05/12/2019 COVID-19 Vaccine ( - 2023- season) 2023 Influenza Vaccine (#1) 2023 Breast Cancer Screening 09/07/2025 09/08/19 24, 08/31/2022, 08/19/2021, Additional history exists RSV Immunization Patients 60+ Years Old (1 - 1-dose 75+ series) 09/29/2035 HIB Vaccines Aged Out No longer eligi ble based on patient's age to complete this topic HPV Vaccines Aged Out No longer eligi ble based on patient's age to complete this topic Hepatitis A Vaccines Aged Out No long er eligible based on patient's age to complete this topic Hepatitis B Vaccines Aged Out No long er eligible based on patient's age to complete this topic IPV Vaccines Aged Out No longer eligi ble based on patient's age to complete this topic MMR Vaccines Aged Out No longer eligi ble based on patient's age to complete this topic Meningococcal ACWY Vaccine Aged Out N o longer eligible based on patient's age to complete this topic Meningococcal B Vacine Aged Out No lo nger eligible based on patient's age to complete this topic Pneumococcal Vaccine: Pediatrics (0 to 5 Years) and At-Risk Patients (6 to 64 Years) Aged Out No longer eligible based on patient's age to complete this topic RSV Immunization Patients Under 20 months Aged Out No longer eligible based on patient's age to complete this topic Varicella Vaccines Aged Out No longer eligible based on patient's age to complete this topic Procedures Procedure Name Priority Date/Time Associated Diagnosis Comments PAVEL SCREENING DIGITAL Routine 09/08/2023 12:45 PM EDT Encounter for screening mammogram for malignant neoplasm of breast from Last 3 Months or Most Recently Relevant to Health Maintenance Results * PAVEL SCREENING DIGITAL (09/08/2023 12:45 PM EDT) Anatomical Region Laterality Modality Mammography 09/08/2023 10:3 4 AM EDT Narrative 09/08/2023 12:[address] [facility] Diagnostic Imaging Department [address] [place] [address] [id number] Patient: ??DAVIDADANIEL ?/Age/Sex: 1960 - 62 - F Unit#: ??[id number] ? Location/Status: ??SPDIMAM/REG CLI ? Mnemonic/Ordering Site: ??DIGSC/SPMAM Ordering Physician: ??MANJINDER ORTIZ MD [facility] Screening Digital - 09/08/23 - 1115 Report Status:Signed EXAM: [facility] Screening Digital EXAM DATE AND TIME: 09/08/2023 11:16 AM HISTORY: ??Screening. Family history of breast carcinoma including mother at age 74 and sister at age 59. COMPARISON: ??08/31/22, 08/19/21, 08/16/20 TECHNIQUE: Bilateral digital breast tomosynthesis was performed in the CC and MLO projections. Computer aided detection with [employer] 3D 3.1 was employed. TISSUE DENSITY: b. There are scattered areas of fibroglandular density. FINDINGS: No suspicious masses, grouped microcalcifications, or areas of architectural distortion are seen. The known cyst in the retroareolar area of the left breast, shown previously by ultrasound, has decreased slightly in size, now approximately 8 mm compared to 10 mm. Vascular calcification is present. The skin is unremarkable. IMPRESSION: No mammographic evidence of malignancy is seen. A negative mammogram in the presence of a clinically suspicious palpable abnormality does not preclude the possibility of malignancy or alter the indications for biopsy. BI-RADS: ??Category 2: Benign RECOMMENDATION(S): 1: Routine screening mammogram BILATERAL in 1 year. Dictating Physician: ??SHAHNAZ SWENSON MD Electronically Signed by: ??SHAHNAZ SWENSON MD Dic Date/Time: ??09/08/23 1244 Sign date/Time: ??09/08/23 1245 Procedure Note Shahnaz Swenson MD - 11/29/2023 [facility] Diagnostic Imaging Department [address] [place] [address] Patient: DANIEL STERLING D.O.B./Age/Sex: 1960 - 62 - F Unit#: [id number] [facility] Ordering Physician: MANJINDER ORTIZ MD [facility] Screening Digital - 09/08/23 - 1115 Report Status:Signed EXAM: [facility] Screening Digital EXAM DATE AND TIME: 09/08/2023 11:16 AM HISTORY: Screening. Family history of breast carcinoma including motherat age 74 and sister at age 59. COMPARISON: 08/31/22, 08/19/21, 08/16/20 TECHNIQUE: Bilateral digital breast tomosynthesis was performed in the CCand MLO projections. Computer aided detection with [employer] 3D 3.1was employed. TISSUE DENSITY: b. There are scattered areas of fibroglandular density. FINDINGS: No suspicious masses, grouped microcalcifications, or areas ofarchitectural distortion are seen. The known cyst in the retroareolar area of the leftbreast, shown previously by ultrasound, has decreased slightly in size, now approximately 8 mm compared to 10 mm. Vascular calcification is present. The skin is unremarkable. IMPRESSION: No mammographic evidence of malignancy is seen. A negative mammogram in the presence of a clinically suspicious palpable abnormality does not preclude the possibility of malignancy or alter the indications for biopsy. BI-RADS: Category 2: Benign RECOMMENDATION(S): 1: Routine screening mammogram BILATERAL in 1 year. Dictating Physician: SHAHNAZ SWENSON MD Electronically Signed by: SHAHNAZ SWENSON MD Dic Date/Time: 09/08/23 1244 Sign date/Time: 09/08/23 1245 Manjinder Ortiz MD IMG BI PROCEDURES Final Result from Last 3 Months or Most Recently Relevant to Health Maintenance Care Teams Electroencephalographic Technician Relationship Specialty Start Date End Date David Kaiser MD [address] [place] [address] PCP - General Internal Medicine 10/22/21
== END 2024-06-22 10:26 | disposition home or self-care (01) ==
LOC: HO.HMCC 08:58
PROVIDERS: PCP Internal Medicine; Visit Provider Internal Medicine
DX: E78.5 Hyperlipidemia, unspecified (principal); I10 Essential (primary) hypertension; E55.9 Vitamin D deficiency, unspecified; M54.50 Low back pain, unspecified; G89.29 Other chronic pain

== ENCOUNTER → 2024-06-22 08:57 | Outpatient (BNVA) | payer OTHER, SELFPAY | PROVIDERS: PCP Internal Medicine; Visit Provider Internal Medicine | DX: E78.5 Hyperlipidemia, unspecified (principal); E55.9 Vitamin D deficiency, unspecified; I10 Essential (primary) hypertension; M54.50 Low back pain, unspecified; G89.29 Other chronic pain | CPT/HCPCS: 96127; 99212 ==

== ENCOUNTER 2024-09-14 09:04 | Outpatient (REF) | payer OTHER, SELFPAY ==
[2024-09-14 10:09] LABS: MANUAL DIFF FLAG NO
[2024-09-14 10:42] LABS: Basophils Percent Auto 1.2 % (0-2); Eosinophils Absolute Auto 0.1 X10*3/uL (0.0-0.4); Eosinophils Percent Auto 2.2 % (0-4); Hemoglobin 12.3 g/dl (12.0-16.0); Lymphocytes Absolute Auto 1.4 X10*3/uL (1.2-4.9); Lymphocytes Percent Auto 43.2 % (20-40); Mean Corpuscular HGB Conc 33.2 g/dl (31.0-35.0); Mean Corpuscular Hemoglobin 28.9 pg (27.0-33.0); Mean Corpuscular Volume 86.9 fL (80.0-98.0); Mean Platelet Volume 12.6 fL (9.4-12.3); Monocytes Absolute Auto 0.3 X10*3/uL (0.1-1.2); Neutrophils Absolute Auto 1.5 x10*3/uL (2.0-8.3); Neutrophils Percent Auto 45.4 % (45-73); Platelet Count 236 X10*3/uL (160-400); Red Blood Count 4.26 X10*6/uL (4.20-5.50); Red Cell Distribution Width 12.7 % (11.0-16.0); White Blood Count 3.2 X10*3/uL (4.8-10.8)
[2024-09-14 11:19] LABS: Vitamin B12 515 pg/mL (200-900)
[2024-09-14 14:58] LABS: Alanine Aminotransferase 20 U/L (0-31); Albumin Level 4.5 g/dL (3.5-5.0); Alkaline Phosphatase 61 U/L (39-117); Anion Gap 9 (12-20); Aspartate Amino Transferase 26 U/L (5-31); Bilirubin Total 0.3 mg/dL (0.0-1.0); Blood Urea Nitrogen 12 mg/dL (9-16); Calcium 9.7 mg/dL (8.4-10.2); Carbon Dioxide 29 mmol/L (22-29); Chloride 110 mmol/L (96-108); Cholesterol 191 mg/dL (<200); Estimated Glomerular Filt Rate > 60; Glucose Fasting 89 mg/dL (60-99); HDL Cholesterol 78 mg/dL (>40); LDL Cholesterol Calculated 93 mg/dL (<100); Magnesium 2.1 mg/dL (1.6-2.6); Potassium 4.2 mmol/L (3.3-5.1); Sodium 144 mmol/L (135-145); Triglycerides 101 mg/dL (<150)
[2024-09-14 15:17] LABS: TSH reflex Free T4 0.93 uIU/mL (0.32-4.0); Vitamin D 25-OH Total 144.3 ng/mL (>30)
== END 2024-09-14 09:05 | disposition home or self-care (01) ==
LOC: HO.HMGCLDS 09:04
PROVIDERS: PCP Internal Medicine; Visit Provider Internal Medicine
DX: E55.9 Vitamin D deficiency, unspecified (principal); M54.2 Cervicalgia; R25.2 Cramp and spasm; I10 Essential (primary) hypertension
CPT/HCPCS: 36415; 80053; 80061; 82306; 82607; 82746; 83735; 84443; 85025

== ENCOUNTER 2024-10-23 08:50 | Outpatient (AMB) | payer OTHER, SELFPAY ==
--- NOTE | 2024-10-23 08:52 | MHC.PC.OV ---
Vital Signs 10/23/24 08:53 Height 5 ft 4 in Weight 155 lb BMI 26.6 BP 116/74 Blood Pressure Location Lt brachial Position Sitting Respiration 18 Pulse 86 Pulse Source Pulse Oximeter Temp 98.1 F Temp Source Oral Pulse Oximetry (%) 99 Oxygen Delivery Method Room Air Intake Visit Reasons: PE per TRISTA Intake Note: Pt is here today for PE. Allergies No Known Allergies Allergy (Verified 10/23/24 08:54) Medication List - Last Reconciled 10/23/24 by Therese Ortiz MD ciclopirox 8% 1 appl topical BEDTIME 4 weeks cyclobenzaprine 10 mg PO TID PRN multivitamin 1 tab PO DAILY rosuvastatin 5 mg PO DAILY valsartan 320 mg PO DAILY Tobacco use date assessed: 10/23/24 Fall risk assessment: No Falls in past year Last assessed Fall Risk: 10/23/24 Dental Screening Dental Screen Date: 10/23/24 Did you have a dental visit in the last 12 months?: Yes Did you have a dental problem in the last 6 months where you did not have access to dental care?: No Was dental information given to patient?: Patient has dentist HPI PE per HPI Details Pt presents for PE. [facility] Medical History (Updated 10/23/24 @ 09:14 by Therese Ortiz MD) Ectopic Surgical History Hx of tonsillectomy Family History Sister Mental health disorder Brother Mental health disorder Social History Housing: House Patient Tobacco Use Status: Never used Tobacco e-Cigarette/Vaping Use: Never Used service: No Current occupational status: unemployed Cognitive needs: No Hearing needs: No Vision needs: Yes Questionnaire PHQ-9 Over the last 2 weeks, how often have you been bothered by any of the following problems? 1. Little interest or pleasure in doing things: not at all 2. Feeling down, depressed, or hopeless: not at all 3. Trouble falling or staying asleep, or sleeping too much: several days 4. Feeling tired or having little energy: several days 5. Poor appetite or overeating: not at all 6. Feeling bad about yourself - or that you are a failure or have let yourself or your family down: not at all 7. Trouble concentrating on things, such as reading the newspaper or watching television: several days 8. Moving or speaking so slowly that other people could have noticed. Or the opposite - being so fidgety or restless that you have been moving around a lot more than usual: not at all 9. Thoughts that you would be better off or of hurting yourself in some way: not at all Total score: 3 Depression Screening Interpretation: Negative Depression Screening Done: Yes 98992 - PHQ-9 Billing: Yes Source: Developed by Drs. Jomar Haro, Maryanne Sosa, Steven Pelayo and colleagues, with an educational ramila from [employer]. Thrive Questionnaire Date Thrive assessed: 10/23/24 I am a: Patient What is your living situation today?: I have a steady place to live Within the past 12 months, did the food you bought not last and you didn't have the money to get more?: Never true Within the past 12 months, did you worry whether your food would run out before you got money to buy more?: Never true Do you have trouble paying for medicines?: No Do you have trouble getting transportation to medical appointments?: No Do you have trouble paying your heating and electricity bill?: No Do you have trouble taking care of your child, family member or friend?: No Do you have trouble with day-to-day activities such as bathing, preparing meals, shopping, managing finances, etc.?: No Are you currently unemployed and looking for a job?: No Are you interested in more education?: No Please select the resources that you would like help with: None Currently or been in a relationship where the following occur: No concerns reported THRIVE Score: 0 AUDIT C Alcohol Use Questionnaire (AUDIT-C) 1. How often do you have a drink containing alcohol?: Monthly or less 2. How many drinks containing alcohol do you have on a typical day when you are drinking?: 1 or 2 3. How often do you have six or more drinks on one occasion?: Never Total Score: 1 EASTON-7 AMB Questionnaire EASTON-7 Date EASTON - 7 assessed: 10/23/24 Feeling nervous, anxious, or on edge: 1 = Several days Not being able to stop or control worryin = Not at all Worrying too much about different things: 0 = Not at all Trouble relaxin = Not at all Being so restless that it is hard to sit still: 0 = Not at all Becoming easily annoyed or irritable: 0 = Not at all Feeling afraid as if something awful might happen: 0 = Not at all Total EASTON-7 score (0-4 normal; 5-9 mild; 10-14 moderate; 15-21 severe): 1 Source: Developed by Drs. Jomar Haro, Maryanne Sosa, Steven Pelayo and colleagues, with an educational ramila from [employer]. EASTON-7 Assessment Billing EASTON-7 Assessment Tool: EASTON-7 Assessment 90649 Review of Systems Const All systems reviewed & are unremarkable except as noted in HPI and below Eyes Reports no additional complaints ENT Reports no additional complaints Card Reports no additional complaints Resp Reports no additional complaints GI Reports no additional complaints Reports no additional complaints Musc Reports no additional complaints Physical exam (Primary Care) Vital Signs: Last Vital Signs Temp 98.1 F 10/23/24 08:53 Pulse 86 10/23/24 08:53 Resp 18 10/23/24 08:53 BP 116/74 10/23/24 08:53 Pulse Ox 99 10/23/24 08:53 Oxygen Delivery Method Room Air 10/23/24 08:53 BMI result Body Mass Index 26.6 Tobacco/Smoking Status: Tobacco use Status Tobacco use date assessed 10/23/24 10/23/24 08:59 Patient Tobacco Use Status Never used Tobacco 10/23/24 08:59 e-Cigarette/Vaping Use Never Used 10/23/24 08:59 PHQ-9: PHQ-9 Score PHQ-9: Total score 3 10/23/24 08:59 Depression Screening Interpretation: Negative Thrive Assessment: Date of Thrive Assessment Date Thrive assessed 10/23/24 10/23/24 08:59 Currently or been in a relationship where the following occur: No concerns reported Const General: no acute distress HENMT Head: Yes normal to inspection Ears: hearing grossly normal bilaterally Mouth: Normal oral and palatal mucosa present Throat: Yes posterior oropharynx normal Eyes General: appearance normal, both eyes and all related structures Neck Neck: Yes no lymphadenopathy and Yes supple Resp Effort & Inspection: normal respiratory effort Auscultation: clear to auscultation bilaterally Cardio Rhythm: regular rhythm Heart sounds: S1 normal heart sound present and S2 normal heart sound present GI Inspection: Yes normal to inspection Palpation (GI): Soft to palpation Percussion: Yes normal to percussion Auscultation: normal bowel sounds Coding Level of Care Code Est Pt Prev Care 40-64y(90564) Diagnoses HTN (hypertension) I10 Hyperlipidemia E78.5 Vitamin D deficiency E55.9 Annual physical exam Z00.00 Additional Codes EASTON-7 Assessment Billing - EASTON-7 Assessment Tool: EASTON-7 Assessment 52250 ([id number]) PHQ-9 - 47575 - PHQ-9 Billing: Yes ([id number]) Assessment & Plan Assessment & Plan (1) HTN (hypertension): Code(s): I10 - Essential (primary) hypertension Category: Medical Plan: Continue valsartan (2) Hyperlipidemia: Code(s): E78.5 - Hyperlipidemia, unspecified Category: Medical Plan: Continue statin (3) Vitamin D deficiency: Code(s): E55.9 - Vitamin D deficiency, unspecified Category: Medical Plan: Continue vitamin-D supplement every other day (4) Annual physical exam: Code(s): Z00.00 - Encounter for general adult medical examination without abnormal findings Category: Medical Plan: Well-balanced diet regular physical activity discussed with the patient. She is up-to-date with the mammogram Pap smear by food safety coordinator colonoscopy. Follow-up in 6 months with a fasting labs before Orders: Orders Comprehensive Hana. Panel Fast 6 Months E78.5 - Hyperlipidemia, unspecified, I10 - Essential (primary) hypertension Complete Blood Count Auto Diff 6 Months D70.9 - Neutropenia, unspecified Medications: Refilled rosuvastatin 5 mg PO DAILY 90 tabs 3RF valsartan 320 mg PO DAILY 90 tabs 3RF
[2024-10-23 08:53] VITALS: BP 116/74; PULSE 86; RESP 18; TEMP 36.7; O2SAT 99; BMI 26.6
--- OUTSIDE RECORDS SUMMARY | 2024-10-23 09:00 | XMS_ITS | Clinical Summary ---
Author Organization [facility] Address [address] [place] [address] Care Team Providers Care Carton Forming Machine Adjuster Name Role Phone David Kaiser MD Primary Care Provider [phone] Allergies No known active allergies Medications Medication [...] (1 of 2) 2010 Influenza Vaccine (#1) 2024 Pneumococcal Vaccine (1 of 1 - PCV) 2025 RSV Adult > 60+ Yrs or Pregn [...] age to complete this topic Care Teams Carton Forming Machine Adjuster Relationship Specialty Start Date End Date David Kaiser MD [address] [place] [address] PCP - General Internal Medicine 05/17/20
--- OUTSIDE RECORDS SUMMARY | 2024-10-23 09:00 | XMS_ITS | Clinical Summary ---
Author Organization [facility] Address [address] [place] [address] Phone Care Team Providers Care Catalog Library Assistant Name Role Phone David Kaiser MD Primary Care Provider [phone] Encounters Date Type Department Care Team Description 09/11/2024 7:04 AM EDT - 09/11/2024 11:59 PM EDT Hospital [facility]counter [facility] at [address] [phone] Encounter for screening mammogram for breast cancer Discharge Disposition: Home or Self Care from Last 3 Months Surgical History Surgery Date Site/Laterality Comments TONSILLECTOMY PROCEDURE: HISTORICAL TONSILLECTOMY TUBAL LIGATION PROCEDURE: HISTORICAL TUBAL LIGATION; COMMENT: And patient had ectopic Medical History Medical History Date Comments Mixed hyperlipidemia DX:Mixed hy perlipidemia Essential (primary) hypertension DX:Essential (primary) hypertension Social History Tobacco Use Types Packs/Day Years Used Date Smoking Tobacco: Never Smokeless Tobacco: Never Comments No Sex and Gender Information Value Date Recorded Sex Assigned at Not on file Legal Sex Female 8:50 PM EST Gender Identity Not on file Sexual Orientation Not on file Obstetrics History Para Term AB IAB SAB Ectopic Multiple Livin g Live Births 4 Last Filed Vital Signs Vital Sign Reading Time Taken Comments Blood Pressure - - Pulse - - Temperature - - Respiratory Rate - - Oxygen Saturation - - Inhaled Oxygen Concentration - - Weight 68.9 kg (152 lb) 09/11/2024 7:24 AM EDT Height 162.6 cm (5' 4 ) 09/11/2024 7:24 AM EDT Body Mass Index 26.09 09/11/2024 7:24 AM EDT Plan of Treatment Health Maintenance Due Date Last Done Comments Cervical Cancer Screening: Pap Smear 1981 Pneumococcal Vaccine: 50+ Years (1 of 1 - PCV) 2010 Cholesterol Screening (Lipid Panel) 05/12/2019 Colorectal Cancer Screening: Colonoscopy 05/12/2019 Depression Screening 05/12/2019 HIV Screening 05/12/2019 Hepatitis C Screening 05/12/2019 Social Influencers of Health Screening 05/12/2019 COVID-19 Vaccine ( season) 2023 03/19/2023, 01/31/2021, 06/13/2020, Additional history exists Influenza Vaccine (#1) 2024 , 03/29/2023, 02/15/2021, Additional history exists Breast Cancer Screening 09/11/2026 09/12/19, 09/08/2023, 08/31/2022, Additional history exists DTaP,Tdap,and Td Vaccines (4 - Td or Tdap) 02/28/2029 02/28/2019, 01/17/2018, 04/28/2011 Zoster Vaccines Completed 03/12/2023, 12/09/2022 RSV Immunization Adult Patients Completed 03/19/2023 HIB Vaccines Aged Out No longer eligi [...] age to complete this topic Meningococcal B Vaccine Aged Out No l onger eligible based on patient's age to complete this topic RSV Immunization Patients Under 20 months Aged Out No longer eligible based on patient's age to complete this topic Varicella Vaccines Aged Out No longer eligible based on patient's age to complete this topic Procedures Procedure Name Priority Date/Time Associated Diagnosis Comments MG MAMMO DIGITAL SCREENING W [place] BILAT Routine 09/11/2024 7:32 AM EDT Encounter for screening mammogram for breast cancer from Last 3 Months Results * MG Mammo Digital Screening w Camron bilat (09/11/2024 7:32 AM EDT) Anatomical Region Laterality Modality Breast Bilateral Mammography 09/11/2024 9:12 AM EDT Impressions 09/11/2024 9:18 AM EDT No mammographic evidence of malignancy. No suspicious interval change. A negative mammogram in the presence of a clinically suspicious palpable abnormality does not preclude the possibility of malignancy or alter the indications for biopsy. ASSESSMENT: BI-RADS 2: BENIGN RECOMMENDATION(S): 1: Routine screening mammogram BILATERAL in 1 year. [facility] location[facility] at [address], [address] -------- FINAL REPORT -------- Dictated By: Armin Snyder Dictated Date: 09/11/2024 09:12 ET Assigned Physician: Armin Snyder Reviewed and Electronically Signed By: Armin Snyder Signed Date: 09/11/2024 09:18 ET Workstation ID: [id number] Transcribed By: Self Edit Transcribed Date: 09/11/2024 09:12 ET Narrative 09/11/2024 9:18 AM EDT EXAM: SCREENING MAMMOGRAPHY, BILATERAL HISTORY: SCREENING. No additional history. COMPARISON: 09/08/23, 08/31/22, 08/19/21, 08/16/20 TECHNIQUE: Synthesized CC and MLO projections of each breast. Tomosynthesis of each breast in the CC and MLO projections. ADDITIONAL IMAGING: None Computer-aided detection was employed with the iCAD [employer] AI 3-D. TISSUE DENSITY: There are scattered areas of fibroglandular density. (BI-RADS category B) FINDINGS: RIGHT BREAST: No suspicious mass. No suspicious calcification. No distortion. No additional suspicious right breast findings LEFT BREAST: No suspicious mass. No suspicious calcification. No distortion. Unchanged duct ectasia in the left retroareolar region. Procedure Note Armin Snyder MD - 09/11/2024 EXAM: SCREENING MAMMOGRAPHY, BILATERAL HISTORY: SCREENING. No additional history. COMPARISON: 09/08/23, 08/31/22, 08/19/21, 08/16/20 TECHNIQUE: Synthesized CC and MLO projections of each breast.Tomosynthesis of each breast in the CC and MLO projections. ADDITIONAL IMAGING: None Computer-aided detection was employed with the iCAD ProFound AI 3-D. TISSUE DENSITY: There are scattered areas of fibroglandular density.(BI-RADS category B) FINDINGS: RIGHT BREAST: No suspicious mass. No suspicious calcification. No distortion. Noadditional suspicious right breast findings LEFT BREAST: No suspicious mass. No suspicious calcification. No distortion.Unchanged duct ectasia in the left retroareolar region. IMPRESSION: No mammographic evidence of malignancy. No suspicious interval change. A negative mammogram in the presence of a clinically suspicious palpableabnormality does not preclude the possibility of malignancy or alter theindications for biopsy. ASSESSMENT: BI-RADS 2: BENIGN RECOMMENDATION(S): 1: Routine screening mammogram BILATERAL in 1 year. [facility] location[facility] at [address], [address] -------- FINAL REPORT -------- Dictated By: Armin Snyder Dictated Date: 09/11/2024 09:12 ET Assigned Physician: Armin Snyder Reviewed and Electronically Signed By: Armin Snyder Signed Date: 09/11/2024 09:18 ET Workstation ID: [id number] Transcribed By: Self Edit Transcribed Date: 09/11/2024 09:12 ET us Self Referral Sppl IMG BI PROCEDURES Final Resul t from Last 3 Months Insurance [employer] Care Teams Catalog Library Assistant Relationship Specialty Start Date End Date David Kaiser MD [address] [place] [address] PCP - General Internal Medicine 10/22/21
== END 2024-10-23 09:25 | disposition home or self-care (01) ==
LOC: HO.HMCC 08:51
PROVIDERS: PCP Internal Medicine; Visit Provider Internal Medicine
DX: I10 Essential (primary) hypertension (principal); E78.5 Hyperlipidemia, unspecified; E55.9 Vitamin D deficiency, unspecified; Z00.00 Encounter for general adult medical examination without abnormal findings

== ENCOUNTER → 2024-10-23 08:50 | Outpatient (BNVA) | payer OTHER, SELFPAY | PROVIDERS: PCP Internal Medicine; Visit Provider Internal Medicine | DX: Z00.00 Encounter for general adult medical examination without abnormal findings (principal); I10 Essential (primary) hypertension; E78.5 Hyperlipidemia, unspecified; E55.9 Vitamin D deficiency, unspecified; Z79.899 Other long term (current) drug therapy; Z13.31 Encounter for screening for depression; Z13.39 Encounter for screening examination for other mental health and behavioral disorders | CPT/HCPCS: 96127; 99396 ==